=== PATIENT | male | born 1965 | race American Indian/Alaskan Native ===

== ENCOUNTER 2016-12-24 11:19 | Emergency (ER) | payer OTHER ==
[2016-12-24] MEDS ORDERED: DECADRON IM STA (14:33)
[2016-12-24] MEDS ORDERED: TORADOL IM ONE (14:33)
[2016-12-24 16:05] VITALS: BP 124/87
--- NOTE | 2016-12-25 08:23 | Emergency Department Report ---
Entered by MAC TALAVERA, acting as scribe for MARIANNA BALL PA. ED Lower Extremity HPI - General Chief Complaint: Extremity Injury, Lower Stated Complaint: GOUT Time Seen by Provider: 12/24/16 13:59 Source: patient Mode of arrival: Ambulatory Limitations: No Limitations - History of Present Illness Initial Comments: 51 y/o male with PMHx of DVT and HTN, presents to the ED c/o gout flare up that began 3 days ago. Associated symptoms include swelling, redness and pain to right ankle (x3 days) and right elbow (last night) and rash but he denies fever and chills. Pain is described as aching and 10/10 on a severity scale. Patient states his last gout flare was 1 month ago. No alleviating factors despite taking uloric or aggravating factors. NKDA. Patient has been eating seafood and red meat over the last couple days. He said he has obvious primary care next week regarding change in his maintenance gout medication because this is not working for him. MD Complaint: other (gout flare up right ankle and elbow) Onset/Timin -: days(s) Injury: Ankle: Right (swollen red from gout attack) Place: home Severity: severe Severity scale (0 -10): 10 Improves With: nothing Worsens With: nothing Context: other (gout flareup) Associated Symptoms: swelling, ambulatory. denies: snap/pop sensation, numbness , tingling, unable to bear weight, able to partially bear weight Treatments Prior to Arrival: other (uloric) - Related Data Previous Rx's Medication Instructions Recorded Last Taken Type Allopurinol [Zyloprim] 100 mg PO QDAY #30 tablet 02/26/13 10/02/13 09:00 Rx Colchicine/Probenecid 1 each PO DAILY #7 tablet 02/26/13 10/02/13 09:00 Rx [Probenecid-Colchicine Tab] Indomethacin [Indocin] 25 mg PO DAILY PRN #30 capsule 02/26/13 10/02/13 09:00 Rx HYDROcodone/APAP 5-325 [Anza 1 each PO Q6HR PRN #12 tablet 12/24/16 Unknown Rx 5-325 mg TAB] Ibuprofen [Motrin] 600 mg PO Q8H PRN #15 tablet 12/24/16 Unknown Rx predniSONE [Deltasone] 50 mg PO QDAY #5 tab 12/24/16 Unknown Rx Allergies Allergy/AdvReac Type Severity Reaction Status Date / Time No Known Allergies Allergy Verified 12/24/16 11:28 ED Review of Systems Comment: All other systems reviewed and negative Constitutional: denies: chills, fever Respiratory: no symptoms reported Cardiovascular: denies: chest pain, palpitations, edema, syncope Gastrointestinal: denies: abdominal pain, nausea, vomiting, diarrhea Genitourinary: denies: urgency, dysuria, frequency, hematuria Musculoskeletal: joint swelling, arthralgia (right ankle and right elbow). denies: back pain, myalgia Skin: rash, other (redness) Neurological: denies: headache, weakness, numbness, paresthesias, confusion, abnormal gait, vertigo ED Past Medical Hx - Past Medical History Previous Medical History?: Yes Hx Hypertension: Yes Hx Deep Vein Thrombosis: Yes Hx Pulmonary Embolism: Yes Additional medical history: Gout - Surgical History Past Surgical History?: No - Family History Family history: hypertension - Social History Smoking Status: Current Every Day Smoker Substance Use Type: None - Medications Home Medications: Home Medications Medication Instructions Recorded Confirmed Last Taken Type Allopurinol [Zyloprim] 100 mg PO QDAY #30 tablet 02/26/13 10/04/13 10/02/13 09: 00 Rx Colchicine/Probenecid 1 each PO DAILY #7 tablet 02/26/13 10/04/13 10/02/13 09: 00 Rx [Probenecid-Colchicine Tab] Indomethacin [Indocin] 25 mg PO DAILY PRN #30 capsule 02/26/13 10/04/13 09:00 Rx HYDROcodone/APAP 5-325 [Anza 1 each PO Q6HR PRN #12 tablet 12/24/16 Unknown Rx 5-325 mg TAB] Ibuprofen [Motrin] 600 mg PO Q8H PRN #15 tablet 12/24/16 Unknown Rx predniSONE [Deltasone] 50 mg PO QDAY #5 tab 12/24/16 Unknown Rx ED Physical Exam - General Limitations: No Limitations General appearance: alert, in no apparent distress - Head Head exam: Present: atraumatic, normocephalic, normal inspection - Eye Eye exam: Present: normal appearance, PERRL, EOMI Pupils: Present: normal accommodation - ENT ENT exam: Present: normal exam, normal orophraynx, mucous membranes moist, TM's normal bilaterally, normal external ear exam - Neck Neck exam: Present: normal inspection, full ROM. Absent: tenderness, lymphadenopathy - Respiratory Respiratory exam: Present: normal lung sounds bilaterally. Absent: respiratory distress, chest wall tenderness - Cardiovascular Cardiovascular Exam: Present: regular rate, normal rhythm, normal heart sounds - GI/Abdominal GI/Abdominal exam: Present: soft, normal bowel sounds. Absent: tenderness, guarding, rebound - Extremities Exam Extremities exam: Present: other (no ankle effusion, erythema, hot to touch, 2+ pulses) - Expanded Upper Extremity Exam Right General: Absent: normal inspection, laceration, abrasion, nail injury (#), foreign body, amputation Shoulder Exam: Present: normal inspection, full ROM, tenderness, swelling. Absent: laceration, ecchymosis, deformity, crepidus, dislocation, erythema, tenderness over AC joint Upper Arm exam: Present: normal inspection, full ROM. Absent: tenderness, swelling, abrasion, laceration, ecchymosis, deformity, crepidus, dislocation, erythema Elbow exam: Present: normal inspection, full ROM, tenderness, swelling (mild), erythema, other (hot to touch). Absent: abrasion, laceration, ecchymosis, deformity, crepidus, dislocation, effusion, pain w/ pronation/supination, tenderness over radial head Forearm Wrist exam: Present: normal inspection, full ROM. Absent: tenderness, swelling, abrasion, laceration, ecchymosis, deformity, crepidus, dislocation, erythema, tenderness over anatomical snuff box, pain with axial thumb loading Hand Wrist exam: Present: normal inspection, full ROM. Absent: tenderness, swelling, abrasion, laceration, ecchymosis, deformity, crepidus, dislocation, erythema, amputation, nail avulsion, subungual hematoma Neuro motor exam: Present: wrist extension intact, thumb opposition intact, thumb IP flexion intact, thumb adduction intact, fingers 2-5 abduction intact Vascular: Present: normal capillary refill, radial pulse, brachial pulse, ulnar pulse. Absent: vascular compromise, Pallo, pulse deficit radial art, pulse deficit ulnar art, pulse deficit brachial art - Expanded Lower Extremity Exam Right Hip exam: Present: normal inspection, full ROM, pelvic stability. Absent: tenderness, swelling, abrasion, laceration, ecchymosis, deformity, crepidus, dislocation, erythema, external rotation, internal rotation, shortening Upper Leg exam: Present: normal inspection, full ROM. Absent: tenderness, swelling, abrasion, laceration, ecchymosis, deformity, crepidus, dislocation, erythema Knee exam: Present: normal inspection, full ROM, full knee extension. Absent: tenderness, swelling, abrasion, laceration, ecchymosis, deformity, crepidus, dislocation, erythema, effusion, pain w/ pronation/supination Lower Leg exam: Present: normal inspection, full ROM. Absent: tenderness, swelling, abrasion, laceration, ecchymosis, deformity, crepidus, dislocation, erythema, palpable cord, Marian's sign Ankle exam: Present: full ROM, tenderness, swelling (mild), erythema. Absent: normal inspection, abrasion, laceration, ecchymosis, deformity, crepidus, dislocation Foot/Toe exam: Present: normal inspection, full ROM. Absent: tenderness, swelling, abrasion, laceration, ecchymosis, deformity, crepidus, dislocation, erythema, amputation, puncture wound, foreign body, calcaneal tenderness, tenderness at base of 5th metatarsal, nail avulsion, subungual hematoma Neuro vascular tendon exam: Present: no vascular compromise. Absent: pulse deficit, abnormal cap refill, motor deficit, sensory deficit, tendon deficit, extremity cold to touch, pallor, abnormal 2-point discrimination, decreased fine /light touch, foot drop, peroneal nerve deficit, significant pain with passive ROM of distal joint Gait: Positive: observed and limited by pain - Back Exam Back exam: Present: normal inspection, full ROM. Absent: tenderness, CVA tenderness (R), CVA tenderness (L), muscle spasm, paraspinal tenderness, vertebral tenderness, rash noted - Neurological Exam Neurological exam: Present: alert, oriented X3, normal gait, reflexes normal. Absent: motor sensory deficit - Psychiatric Psychiatric exam: Present: normal affect, normal mood - Skin Skin exam: Present: warm, dry, intact, normal color. Absent: rash ED Course Vital Signs 12/24/16 12/24/16 12/24/16 11:30 14:45 16:04 Temperature 98.3 F 97.7 F Pulse Rate 86 79 Respiratory 17 16 18 Rate Blood Pressure 123/84 Blood Pressure 124/87 [Left] O2 Sat by Pulse 99 98 Oximetry - Reevaluation(s) Reevaluation #1: 12/24/16 15:45 Patient given Decadron 10 mg IM and Toradol 60 mg IM and emergency room to manage ago pain. Reevaluation he said he was feeling much better and is ready to go home. ED Lower Extremity MDM - Medical Decision Making ED course: Patient with acute gouty arthritis flareup. He was treated with Decadron 10 mg IM and Toradol 60 mg IM which relieved this pain. I discussed the patient that he needs to follow a diet slowing. To reviewed discharge instruction paperwork for information on low purine diet. Discharge diagnosis and treatment plan discussed these in agreement. Pt to follow-up with his primary care next week to call Monday to schedule an appointment. Condition discharged home with prescription for prednisone, Motrin and Anza. ED Disposition Clinical Impression: Arthralgia of multiple joints Gout attack Qualifiers: Gout site: multiple sites Gout etiology: unspecified cause Qualified Code(s): M10.9 - Gout, unspecified Disposition: - TO HOME OR SELFCARE Is pt being admited?: No Does the pt Need Aspirin: No Condition: Stable Instructions: Acute Gouty Arthritis (ED), Arthralgia (ED) Additional Instructions: Please following instructions on low purine diet To not drive or operate heavy machinery while taking Anza as this medication will cause drowsiness Prescriptions: HYDROcodone/APAP 5-325 [Anza 5-325 mg TAB] 1 each PO Q6HR PRN #12 tablet PRN Reason: Pain Ibuprofen [Motrin] 600 mg PO Q8H PRN #15 tablet PRN Reason: Pain predniSONE [Deltasone] 50 mg PO QDAY #5 tab Referrals: PRIMARY CARE, [Primary Care Provider] - 12/26/16 Forms: Work/School Release Form(ED) This documentation as recorded by the ILAN ansari ELIZABETH,accurately reflects the service I personally performed and the decisions made by ,MARIANNA BALL PA.
== END 2016-12-24 16:04 | disposition home or self-care (01) ==
LOC: ED 11:19
DX: M25.571 Pain in right ankle and joints of right foot (principal); M25.521 Pain in right elbow; M10.9 Gout, unspecified; I10 Essential (primary) hypertension; F17.200 Nicotine dependence, unspecified, uncomplicated; Z86.718 Personal history of other venous thrombosis and embolism; Z86.711 Personal history of pulmonary embolism
CPT/HCPCS: 96372; 99282; J1100; J1885

== ENCOUNTER 2017-01-11 19:17 | Emergency (ER) | payer OTHER ==
[2017-01-12] MEDS ORDERED: NACL 0.9% IR ONE (00:44)
[2017-01-12] MEDS ORDERED: KEFLEX PO ONE (00:44)
[2017-01-12] MEDS ORDERED: MOTRIN PO ONE (00:44)
[2017-01-12] MEDS ORDERED: XYLOCAINE 1% MPF 5 mL INFILTRATI ONE (00:44)
--- NOTE | 2017-01-12 00:44 | Emergency Department Report ---
- General Chief Complaint: Wound/Laceration Stated Complaint: LACERATION TO R KNEE Time Seen by Provider: 01/12/17 00:30 Source: patient Mode of arrival: Ambulatory Limitations: No Limitations - History of Present Illness Initial Comments: Patient reports he was opening up a glass cabinet door at home and cut his right knee. This happened prior to him coming to the emergency room. He said he was bleeding a lot and he couldn't stop the bleeding. Patient plays pressure to site was dressed in and Band-Aids prior to coming to the emergency room. He reports right knee pain at 10 out of 10 and worse with moving. Denies any numbness or treatment to extremities. Denies that any part of the glass door broke off. He said his tetanus shot is up-to-date. Rest makes pain better and walk-in makes pain worse. -: During the night Extremity Location: Right: Knee (laceration,pain) 1 - cm laceration [address]: home Patient Tetanus UTD: Yes Context: accidental Associated Symptoms: pain. denies: loss of feeling/numbness, suspect foreign body present, unable to move injured part, weakness followed by dizziness, nausea/vomiting, fever Treatments Prior to Arrival: bandage - Related Data Previous Rx's Medication Instructions Recorded Last Taken Type Allopurinol [Zyloprim] 100 mg PO QDAY #30 tablet 02/26/13 10/02/13 09:00 Rx Colchicine/Probenecid 1 each PO DAILY #7 tablet 02/26/13 10/02/13 09:00 Rx [Probenecid-Colchicine Tab] Indomethacin [Indocin] 25 mg PO DAILY PRN #30 capsule 02/26/13 10/02/13 09:00 Rx HYDROcodone/APAP 5-325 [Braggs 1 each PO Q6HR PRN #12 tablet 12/24/16 Unknown Rx 5-325 mg TAB] Ibuprofen [Motrin] 600 mg PO Q8H PRN #15 tablet 12/24/16 Unknown Rx predniSONE [Deltasone] 50 mg PO QDAY #5 tab 12/24/16 Unknown Rx traMADol [Ultram] 50 mg PO Q6HR PRN #20 tablet 01/12/17 Unknown Rx Allergies Allergy/AdvReac Type Severity Reaction Status Date / Time No Known Allergies Allergy Verified 12/24/16 11:28 ED Review of Systems ROS: Stated complaint: LACERATION TO R KNEE Other details as noted in HPI Comment: All other systems reviewed and negative Constitutional: denies: chills, fever Respiratory: no symptoms reported Cardiovascular: denies: chest pain, palpitations, edema, syncope Gastrointestinal: denies: abdominal pain, nausea, vomiting, diarrhea Musculoskeletal: joint swelling, arthralgia. denies: back pain, myalgia Skin: other (aspiration right knee). denies: rash Neurological: denies: headache, weakness, numbness, paresthesias, confusion, abnormal gait, vertigo ED Past Medical Hx - Past Medical History Previous Medical History?: Yes Hx Hypertension: Yes Hx Deep Vein Thrombosis: Yes Hx Pulmonary Embolism: Yes Additional medical history: Gout - Surgical History Past Surgical History?: No - Family History Family history: hypertension - Social History Smoking Status: Current Every Day Smoker Substance Use Type: None Other Social History: and lives at - Medications Home Medications: Home Medications Medication Instructions Recorded Confirmed Last Taken Type Allopurinol [Zyloprim] 100 mg PO QDAY #30 tablet 02/26/13 10/04/13 10/02/13 09: 00 Rx Colchicine/Probenecid 1 each PO DAILY #7 tablet 02/26/13 10/04/13 10/02/13 09: 00 Rx [Probenecid-Colchicine Tab] Indomethacin [Indocin] 25 mg PO DAILY PRN #30 capsule 02/26/13 10/04/13 09:00 Rx HYDROcodone/APAP 5-325 [Braggs 1 each PO Q6HR PRN #12 tablet 12/24/16 Unknown Rx 5-325 mg TAB] Ibuprofen [Motrin] 600 mg PO Q8H PRN #15 tablet 12/24/16 Unknown Rx predniSONE [Deltasone] 50 mg PO QDAY #5 tab 12/24/16 Unknown Rx traMADol [Ultram] 50 mg PO Q6HR PRN #20 tablet 01/12/17 Unknown Rx ED Physical Exam - General Limitations: No Limitations General appearance: alert, in no apparent distress - Head Head exam: Present: atraumatic, normocephalic, normal inspection - Eye Eye exam: Present: normal appearance, PERRL, EOMI. Absent: periorbital swelling , periorbital tenderness Pupils: Present: normal accommodation - ENT ENT exam: Present: normal exam, normal orophraynx, mucous membranes moist - Neck Neck exam: Present: normal inspection, full ROM. Absent: tenderness, meningismus, lymphadenopathy - Respiratory Respiratory exam: Present: normal lung sounds bilaterally. Absent: respiratory distress, chest wall tenderness - Cardiovascular Cardiovascular Exam: Present: regular rate, normal rhythm, normal heart sounds - Extremities Exam Extremities exam: Present: full ROM, tenderness (right knee at laceration site) , normal capillary refill, joint swelling (mild swelling to right knee). Absent : normal inspection, pedal edema, calf tenderness - Expanded Lower Extremity Exam Left Hip exam: Present: normal inspection, full ROM, pelvic stability. Absent: tenderness, swelling, abrasion, laceration, ecchymosis, deformity, crepidus, dislocation, erythema, external rotation, internal rotation, shortening Upper Leg exam: Present: normal inspection, full ROM. Absent: tenderness, swelling, abrasion, laceration, ecchymosis, deformity, crepidus, dislocation, erythema Knee exam: Present: full ROM, tenderness (end of the palpate right knee around laceration), swelling (swelling around right knee), laceration (recent and medially near subcutaneous in depth), pain w/ pronation/supination, full knee extension. Absent: normal inspection, abrasion, ecchymosis, deformity, crepidus , dislocation, erythema, effusion, pain/laxity with valgus, pain/laxity with varus Lower Leg exam: Present: normal inspection, full ROM. Absent: tenderness, swelling, abrasion, laceration, ecchymosis, deformity, crepidus, dislocation, erythema, palpable cord, Marian's sign Ankle exam: Present: normal inspection, full ROM. Absent: tenderness, swelling , abrasion, laceration, ecchymosis, deformity, crepidus, dislocation, erythema Foot/Toe exam: Present: normal inspection, full ROM. Absent: tenderness, swelling, abrasion, laceration, ecchymosis, deformity, crepidus, dislocation, erythema, amputation, puncture wound, foreign body, calcaneal tenderness, tenderness at base of 5th metatarsal, nail avulsion, subungual hematoma Neuro vascular tendon exam: Present: no vascular compromise. Absent: pulse deficit, abnormal cap refill, motor deficit, sensory deficit, tendon deficit, extremity cold to touch, pallor, abnormal 2-point discrimination, decreased fine /light touch, foot drop, peroneal nerve deficit, significant pain with passive ROM of distal joint Gait: Positive: observed and limited by pain - Back Exam Back exam: Present: normal inspection, full ROM. Absent: tenderness - Neurological Exam Neurological exam: Present: alert, oriented X3, normal gait, reflexes normal. Absent: motor sensory deficit - Psychiatric Psychiatric exam: Present: normal affect, normal mood - Skin Skin exam: Present: warm, dry, normal color, other (laceration) - Expanded Skin Exam Expanded Type of lesion: Present: laceration Distribution of rash: RLE, other (right knee) Description of rash: Present: size (3 cm), tenderness, swelling. Absent: erythematous, macular, papular, discharge, fluctuant, indurated ED Course Vital Signs 01/11/17 20:08 Temperature 98.3 F Pulse Rate 83 Respiratory 16 Rate Blood Pressure 158/100 O2 Sat by Pulse 97 Oximetry - Reevaluation(s) Reevaluation #1: 01/12/17 02:18 Received Motrin and Keflex in the emergency room to cover pain and empirically for infection - I & D Right Anterior Medial Knee Progress: No procedure for incision and drainage done this is an arrow - Laceration /Wound Repair Right Anterior Medial Knee Wound Location: lower extremity (right anterior knee) Wound Length (cm): 3 Wound's Depth, Shape: into muscle, linear Wound Explored: clean Irrigated w/ Saline (ccs): 400 Betadine Prep?: Yes Anesthesia: 1% Lidocaine Volume Anesthetic (ccs): 5 Wound Debrided: extensive Wound Repaired With: sutures Suture Size/Type: 3:0 (Ethilon) Number of Sutures: 15 Layer Closure?: Yes Deep Layer Suture Size/Type: 5:0 (Vicryl) Number Deep Layer Sutures: 6 Sterile Dressing Applied?: Yes Progress: patient with laceration repair to right knee. Tetanus vaccine is up-to-date per patient. She tolerated procedure well and area dressed with sterile bulky dressing. ED Medical Decision Making - Medical Decision Making MDM: Assessment/plan ED course:PT here after injuring his right knee on glass door tonight. He sustained a 3 cm laceration which had to be repaired. Duration repaired under sterile procedure see procedure note for details. reports that his tetanus shot is up-to-date less than 5 years. Motrin and Keflex given in emergency room to treat pain and an empirically For infection . She has a history of high blood pressure and is not taking any medication his blood pressure today was 150 /100 and he said because he is in pain. He said he occasionally have high blood pressure but not on a regular basis he does have a primary care physician was Dr. Shira Rhoades. I told himto keep a log of his blood pressure and to schedule an appointment with his primary care doctor and take log with him for evaluation and treatment of elevated blood pressure. She has a history of DVT, gout and pulmonary embolism based on his history at this hospital. Diagnostic/labs: no need For any labs or diagnostic studies. Diagnosis: Laceration without complication to right knee, right knee arthralgia, right knee injury and elevated blood pressure with previous diagnosis of hypertension on no medication. Procedure: Laceration repair under sterile procedure to right knee. He tells in procedure Notes . Medication: She given Motrin 800 mg for pain and Keflex 500 mg empirically for infection. He was prescription for Ultram and Keflex . follow up with his primary care. I also told him to return to emergency room in 7-10 days to have sutures removed. Patient discharged home in stable condition Critical care attestation.: If time is entered above; I have spent that time in minutes in the direct care of this critically ill patient, excluding procedure time. ED Disposition Clinical Impression: Arthralgia of right knee Laceration of right knee without foreign body Qualifiers: Encounter type: initial encounter Qualified Code(s): S81.011A - Laceration without foreign body, right knee, initial encounter Right knee injury Qualifiers: Encounter type: initial encounter Qualified Code(s): S89.91XA - Unspecified injury of right lower leg, initial encounter Disposition: TO HOME OR SELFCARE Is pt being admited?: No Does the pt Need Aspirin: No Condition: Stable Instructions: Arthralgia (ED), Suture Care (ED), Laceration (ED) Additional Instructions: return to ER in 7-10 days for suture removal Take medication as prescribed Keep affected area clean and dry follow up with PCP regrding elevated BP. Keep a log while waiting for appointmentt Prescriptions: traMADol [Ultram] 50 mg PO Q6HR PRN #20 tablet PRN Reason: Pain Referrals: SHIRA RHOADES MD [Primary Care Provider] - 01/16/17 Return to, ER [Other] - 7-10 days Forms: Work/School Release Form(ED)
[2017-01-12 02:48] VITALS: BP 160/111
== END 2017-01-12 02:46 | disposition home or self-care (01) ==
LOC: ED 19:17
DX: S81.011A Laceration without foreign body, right knee, initial encounter (principal); I10 Essential (primary) hypertension; I82.409 Acute embolism and thrombosis of unspecified deep veins of unspecified lower extremity; M10.9 Gout, unspecified; I26.99 Other pulmonary embolism without acute cor pulmonale; F17.200 Nicotine dependence, unspecified, uncomplicated; W26.8XXA Contact with other sharp object(s), not elsewhere classified, initial encounter; Y93.89 Activity, other specified; Y99.8 Other external cause status; Y92.89 Other specified places as the place of occurrence of the external cause

== ENCOUNTER 2017-07-22 14:29 | Emergency (ER) | payer OTHER ==
[2017-07-22 14:35] VITALS: BP 114/95
--- NOTE | 2017-07-22 17:46 | Emergency Department Report ---
Chief Complaint: Skin Rash Stated Complaint: FLU SYMPTOMS/RASH Time Seen by Provider: 07/22/17 17:45 - HPI History of Present Illness: P is a 51 yo male who presents for gout pain of his left elbow and left wrist. Pt states he also has a rash of his chest x 3days. pt states he takes Allopurinol, Colcrys and Indocin.Pt states the rash is itchy and started on his abdomen . Pt states he had this rash before and states that the rash responded to Prednisone . Pt stated that the medications don't help . - ROS Review of Systems: ROS: all systems reviewed neg except as noted per HPI PE: awake, alert and in no distress HEENT: eomi, perrl; mmm Neck: supple Lungs: clear bilat Heart: RRR; no m/g/r Abd: soft, +BS, nd, nt; no peritoneal signs Ext: ; dp pulses 2+; Left elbow and left wrist warmth, edema with tophi Back: tenderness left lower lumbar paraspinal muscles ext; pulses 2+; Neuro: awake, alert in no acute distress skin: dermatitis over trunk legs and back; pityriasis -like rash strength: bilat ue and lower extremities gait: normal - Exam Vital Signs: Vital Signs 07/22/17 14:32 Temperature 98 F Pulse Rate 97 H Respiratory 18 Rate Blood Pressure 114/95 O2 Sat by Pulse 99 Oximetry MSE screening note: Focused history and physical exam performed. Due to findings the following was ordered: ED Disposition for MSE Condition: Stable Referrals: SABI CEDILLO MD [Primary Care Provider] - 3-5 Days
== END 2017-07-22 20:32 | disposition home or self-care (01) ==
LOC: ED 14:29
DX: M25.522 Pain in left elbow (principal); M25.532 Pain in left wrist
CPT/HCPCS: 99282

== ENCOUNTER 2017-08-11 21:10 | Emergency (ER) | payer OTHER ==
[2017-08-11 21:44] VITALS: BP 142/81
[2017-08-11] MEDS ORDERED: DELTASONE PO ONE (23:00)
[2017-08-11] MEDS ORDERED: ULTRAM PO ONE (23:00)
--- NOTE | 2017-08-11 23:07 | Emergency Department Report ---
ED Upper Extremity Inj HPI - General Chief Complaint: Extremity Injury, Upper Stated Complaint: RIGHT ARM/SHOULDER PAIN Time Seen by Provider: 08/11/17 22:56 Source: patient, family Mode of arrival: Ambulatory Limitations: No Limitations - History of Present Illness Initial Comments: Patient 51-year-old -Thai male with a history of gout on allopurinol patient presents for right hand right elbow and right shoulder pain symptoms 3- 4 days pain worse right hand with swelling erythema present there is no weakness patient states is his usual gout exacerbation location duration and pain intensity MD Complaint: Injury to:: right, shoulder, elbow, hand Onset/Timin -: days(s) Other Extremity Injury: Fingers: Right, Hand: Right, Wrist: Right, Elbow: Right , Shoulder: Right Other Injuries: none Place: work Severity scale (0 -10): 4 Worsens With: movement of extremity, other (palpation ) Associated Symptoms: denies: weakness, numbness - Related Data Previous Rx's Medication Instructions Recorded Last Taken Type Allopurinol [Zyloprim] 100 mg PO QDAY #30 tablet 02/26/13 10/02/13 09:00 Rx Indomethacin [Indocin] 25 mg PO DAILY PRN #30 capsule 02/26/13 10/02/13 09:00 Rx Probenecid/Colchicine 1 each PO DAILY #7 tablet 02/26/13 10/02/13 09:00 Rx [Probenecid-Colchicine Tab] HYDROcodone/APAP 5-325 [[place] 1 each PO Q6HR PRN #12 tablet 12/24/16 Unknown Rx 5-325 mg TAB] Ibuprofen [Motrin] 600 mg PO Q8H PRN #15 tablet 12/24/16 Unknown Rx predniSONE [Deltasone] 50 mg PO QDAY #5 tab 12/24/16 Unknown Rx traMADol [Ultram] 50 mg PO Q6HR PRN #20 tablet 01/12/17 Unknown Rx predniSONE [Deltasone] 60 mg PO QDAY 5 Days #15 tablet 07/22/17 Unknown Rx traMADol [Ultram] 50 mg PO Q6HR PRN #20 tablet 07/22/17 Unknown Rx Indomethacin 50 mg PO Q8H #21 capsule 08/11/17 Unknown Rx predniSONE [Deltasone] 40 mg PO DAILY #10 tablet 08/11/17 Unknown Rx Allergies Allergy/AdvReac Type Severity Reaction Status Date / Time No Known Allergies Allergy Verified 12/24/16 11:28 ED Review of Systems ROS: Stated complaint: RIGHT ARM/SHOULDER PAIN Other details as noted in HPI Constitutional: denies: chills, fever Eyes: denies: eye pain, eye discharge, vision change ENT: denies: ear pain, throat pain Respiratory: denies: cough, shortness of breath, wheezing Cardiovascular: denies: chest pain, palpitations Endocrine: no symptoms reported Gastrointestinal: denies: abdominal pain, nausea, diarrhea Genitourinary: denies: urgency, dysuria Musculoskeletal: joint swelling, arthralgia, myalgia Skin: denies: rash, lesions Neurological: denies: headache, weakness, paresthesias Psychiatric: denies: anxiety, depression Hematological/Lymphatic: denies: easy bleeding, easy bruising ED Past Medical Hx - Past Medical History Previous Medical History?: Yes Hx Hypertension: Yes Hx Deep Vein Thrombosis: Yes Hx Pulmonary Embolism: Yes Additional medical history: Gout - Surgical History Past Surgical History?: No - Social History Smoking Status: Current Every Day Smoker Substance Use Type: None - Medications Home Medications: Home Medications Medication Instructions Recorded Confirmed Last Taken Type Allopurinol [Zyloprim] 100 mg PO QDAY #30 tablet 02/26/13 10/04/13 10/02/13 09: 00 Rx Indomethacin [Indocin] 25 mg PO DAILY PRN #30 capsule 02/26/13 10/04/13 09:00 Rx Probenecid/Colchicine 1 each PO DAILY #7 tablet 02/26/13 10/04/13 10/02/13 09: 00 Rx [Probenecid-Colchicine Tab] HYDROcodone/APAP 5-325 [[place] 1 each PO Q6HR PRN #12 tablet 12/24/16 Unknown Rx 5-325 mg TAB] Ibuprofen [Motrin] 600 mg PO Q8H PRN #15 tablet 12/24/16 Unknown Rx predniSONE [Deltasone] 50 mg PO QDAY #5 tab 12/24/16 Unknown Rx traMADol [Ultram] 50 mg PO Q6HR PRN #20 tablet 01/12/17 Unknown Rx predniSONE [Deltasone] 60 mg PO QDAY 5 Days #15 tablet 07/22/17 Unknown Rx traMADol [Ultram] 50 mg PO Q6HR PRN #20 tablet 07/22/17 Unknown Rx Indomethacin 50 mg PO Q8H #21 capsule 08/11/17 Unknown Rx predniSONE [Deltasone] 40 mg PO DAILY #10 tablet 08/11/17 Unknown Rx ED Physical Exam - General Limitations: No Limitations General appearance: alert, in no apparent distress - Head Head exam: Present: atraumatic, normocephalic - Eye Eye exam: Present: normal appearance - ENT ENT exam: Present: mucous membranes moist - Neck Neck exam: Present: normal inspection - Respiratory Respiratory exam: Present: normal lung sounds bilaterally. Absent: respiratory distress - Cardiovascular Cardiovascular Exam: Present: regular rate, normal rhythm. Absent: systolic murmur, diastolic murmur, rubs, gallop - GI/Abdominal GI/Abdominal exam: Present: soft, normal bowel sounds - Rectal Rectal exam: Present: deferred - Extremities Exam Extremities exam: Present: full ROM, tenderness, joint swelling. Absent: normal capillary refill, pedal edema, calf tenderness - Expanded Upper Extremity Exam Right Shoulder Exam: Present: normal inspection, full ROM, tenderness. Absent: swelling, abrasion, laceration, ecchymosis, deformity, crepidus, dislocation, erythema, tenderness over AC joint Upper Arm exam: Present: normal inspection, full ROM. Absent: tenderness, swelling, abrasion, laceration, ecchymosis, deformity, crepidus, dislocation, erythema Elbow exam: Present: normal inspection, full ROM, tenderness. Absent: swelling , abrasion, laceration, ecchymosis, deformity, crepidus, dislocation, erythema, effusion, pain w/ pronation/supination, tenderness over radial head Forearm Wrist exam: Present: normal inspection, full ROM. Absent: tenderness, swelling, abrasion, laceration, ecchymosis, deformity, crepidus, dislocation, erythema, tenderness over anatomical snuff box, pain with axial thumb loading Hand Wrist exam: Present: normal inspection, full ROM, tenderness, swelling. Absent: abrasion, laceration, ecchymosis, deformity, crepidus, dislocation, erythema, amputation, nail avulsion, subungual hematoma Neuro motor exam: Present: wrist extension intact, thumb opposition intact, thumb IP flexion intact, thumb adduction intact, fingers 2-5 abduction intact Neurosensory exam: Present: 2-point discrimination, radial nerve intact, ulnar nerve intact, median nerve intact Vascular: Present: normal capillary refill, radial pulse, brachial pulse, ulnar pulse. Absent: vascular compromise, Pallo, pulse deficit radial art, pulse deficit ulnar art, pulse deficit brachial art - Back Exam Back exam: Present: normal inspection - Neurological Exam Neurological exam: Present: alert, oriented X3 - Psychiatric Psychiatric exam: Present: normal affect, normal mood - Skin Skin exam: Present: warm, dry, intact, normal color. Absent: rash ED Course Vital Signs 08/11/17 21:36 Temperature 99.7 F H Pulse Rate 98 H Respiratory 18 Rate Blood Pressure 142/81 O2 Sat by Pulse 97 Oximetry ED Medical Decision Making - Radiology Data Radiology results: report reviewed, image reviewed no fracture no dislocations noted to xrays of should,elbow or wrist/hand - Medical Decision Making pr presents for acute on chronic gout exacerbation on allopurinol 100 mg po daily , will hold until completion of indomethacin and prednisone, will follow up with pcp in 2-3 days, noted xrays of hand elbow shoulder ordered via protocol in triage no fracture pain is improved with prednisone and ultram given in ed there is good rom rad pulse + 2 bilat, 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 Critical care attestation.: If time is entered above; I have spent that time in minutes in the direct care of this critically ill patient, excluding procedure time. ED Disposition Clinical Impression: Gout Qualifiers: Gout site: hand Gout etiology: unspecified cause Chronicity: acute Laterality: right Qualified Code(s): M10.9 - Gout, unspecified Disposition: DC-01 TO HOME OR SELFCARE Is pt being admited?: No Does the pt Need Aspirin: No Condition: Good Instructions: Acute Gouty Arthritis (ED) Prescriptions: Indomethacin 50 mg PO Q8H #21 capsule predniSONE [Deltasone] 40 mg PO DAILY #10 tablet Referrals: PRIMARY CARE, [Primary Care Provider] - 3-5 Days Forms: Work/School Release Form(ED) Time of Disposition: 23:17
--- NOTE | 2017-08-11 23:16 | XRay Report ---
FINAL REPORT PROCEDURE: Right hand. TECHNIQUE: Two views. HISTORY: Hand pain and swelling. COMPARISON: No prior studies are available for comparison. FINDINGS: The bones appear intact without fracture or dislocation. The joint spaces appear satisfactory. The soft tissues are unremarkable. IMPRESSION: No significant abnormality.
--- NOTE | 2017-08-11 23:22 | XRay Report ---
FINAL REPORT PROCEDURE: Right shoulder. TECHNIQUE: Three views. HISTORY: Shoulder pain and swelling. COMPARISON: No prior studies are available for comparison. FINDINGS: The bones appear intact without fracture or dislocation. The joint spaces appear satisfactory. The soft tissues are unremarkable. IMPRESSION: No significant abnormality.
--- NOTE | 2017-08-11 23:23 | XRay Report ---
FINAL REPORT PROCEDURE: Right elbow. TECHNIQUE: Three views. HISTORY: Elbow pain and swelling. COMPARISON: No prior studies are available for comparison. FINDINGS: I do not have a true lateral view for evaluation. I have an AP and 2 oblique views. The bones appear intact without fracture or dislocation. The joint spaces appear satisfactory. The soft tissues are unremarkable. IMPRESSION: No definite abnormality.
== END 2017-08-11 23:27 | disposition home or self-care (01) ==
LOC: ED 21:10
DX: M10.011 Idiopathic gout, right shoulder (principal); I10 Essential (primary) hypertension; Z86.718 Personal history of other venous thrombosis and embolism; F17.200 Nicotine dependence, unspecified, uncomplicated; Z86.711 Personal history of pulmonary embolism
CPT/HCPCS: 73030; 73070; 73120; 99283; J7512

== ENCOUNTER 2017-09-11 05:22 | Emergency (ER) | payer OTHER ==
[2017-09-11] MEDS ORDERED: NORCO 5/325 ONE (06:41)
[2017-09-11] MEDS ORDERED: NORCO 5/325 PO ONE ×2 (06:43→08:58)
--- NOTE | 2017-09-11 09:00 | Emergency Department Report ---
ED Extremity Problem HPI - General Chief complaint: Extremity Injury, Lower Stated complaint: GOUT Time Seen by Provider: 09/11/17 08:37 Source: patient Mode of arrival: Ambulatory Limitations: No Limitations - History of Present Illness Initial comments: 51-year-old male past medical history gout, DVT, hypertension, PE presents with complaint of left ankle pain since Monday. Patient states that he has left ankle discomfort. Denies any direct trauma. Denies any calf tenderness or leg swelling this leg. States that his symptoms are most consistent with prior episodes of gout. Patient states he ran out of his allopurinol. Denies any fevers or chills. Patient is ambulatory without assistance. States his left ankle is aching him. MD Complaint: extremity pain, extremity swelling Onset/Timin -: days(s) Location: left -: Yes arthralgia Severity scale (0 -10): 3 Consistency: constant Improves with: nothing Worsens with: nothing, weight bearing, walking, palpation Associated Symptoms: denies other symptoms - Related Data Previous Rx's Medication Instructions Recorded Last Taken Type Allopurinol [Zyloprim] 100 mg PO QDAY #30 tablet 02/26/13 10/02/13 09:00 Rx Indomethacin [Indocin] 25 mg PO DAILY PRN #30 capsule 02/26/13 10/02/13 09:00 Rx Probenecid/Colchicine 1 each PO DAILY #7 tablet 02/26/13 10/02/13 09:00 Rx [Probenecid-Colchicine Tab] HYDROcodone/APAP 5-325 [[place] 1 each PO Q6HR PRN #12 tablet 12/24/16 Unknown Rx 5-325 mg TAB] Ibuprofen [Motrin] 600 mg PO Q8H PRN #15 tablet 12/24/16 Unknown Rx predniSONE [Deltasone] 50 mg PO QDAY #5 tab 12/24/16 Unknown Rx traMADol [Ultram] 50 mg PO Q6HR PRN #20 tablet 01/12/17 Unknown Rx predniSONE [Deltasone] 60 mg PO QDAY 5 Days #15 tablet 07/22/17 Unknown Rx traMADol [Ultram] 50 mg PO Q6HR PRN #20 tablet 07/22/17 Unknown Rx Indomethacin 50 mg PO Q8H #21 capsule 08/11/17 Unknown Rx predniSONE [Deltasone] 40 mg PO DAILY #10 tablet 08/11/17 Unknown Rx Allopurinol 100 mg PO QDAY #30 tablet 09/11/17 Unknown Rx Cephalexin [Keflex] 500 mg PO Q12HR #10 cap 09/11/17 Unknown Rx Colchicine [Colcrys] 0.6 mg PO DAILY #4 tablet 09/11/17 Unknown Rx HYDROcodone/APAP 5-325 [[place] 1 each PO Q6HR PRN #15 tablet 09/11/17 Unknown Rx 5/325] Allergies Allergy/AdvReac Type Severity Reaction Status Date / Time No Known Allergies Allergy Verified 12/24/16 11:28 ED Review of Systems ROS: Stated complaint: GOUT Other details as noted in HPI Constitutional: denies: chills, fever Eyes: denies: eye pain, eye discharge, vision change ENT: denies: ear pain, throat pain Respiratory: denies: cough, shortness of breath, wheezing Cardiovascular: denies: chest pain, palpitations Endocrine: no symptoms reported Gastrointestinal: denies: abdominal pain, nausea, diarrhea Genitourinary: denies: urgency, dysuria Musculoskeletal: as per HPI, arthralgia (left ankle). denies: back pain, joint swelling Skin: denies: rash, lesions Neurological: denies: headache, weakness, paresthesias Psychiatric: denies: anxiety, depression Hematological/Lymphatic: denies: easy bleeding, easy bruising ED Past Medical Hx - Past Medical History Previous Medical History?: Yes Hx Hypertension: Yes Hx Deep Vein Thrombosis: Yes Hx Pulmonary Embolism: Yes Additional medical history: Gout - Surgical History Past Surgical History?: No - Social History Smoking Status: Never Smoker Substance Use Type: None - Medications Home Medications: Home Medications Medication Instructions Recorded Confirmed Last Taken Type Allopurinol [Zyloprim] 100 mg PO QDAY #30 tablet 02/26/13 10/04/13 10/02/13 09: 00 Rx Indomethacin [Indocin] 25 mg PO DAILY PRN #30 capsule 02/26/13 10/04/13 09:00 Rx Probenecid/Colchicine 1 each PO DAILY #7 tablet 02/26/13 10/04/13 10/02/13 09: 00 Rx [Probenecid-Colchicine Tab] HYDROcodone/APAP 5-325 [[place] 1 each PO Q6HR PRN #12 tablet 12/24/16 Unknown Rx 5-325 mg TAB] Ibuprofen [Motrin] 600 mg PO Q8H PRN #15 tablet 12/24/16 Unknown Rx predniSONE [Deltasone] 50 mg PO QDAY #5 tab 12/24/16 Unknown Rx traMADol [Ultram] 50 mg PO Q6HR PRN #20 tablet 01/12/17 Unknown Rx predniSONE [Deltasone] 60 mg PO QDAY 5 Days #15 tablet 07/22/17 Unknown Rx traMADol [Ultram] 50 mg PO Q6HR PRN #20 tablet 07/22/17 Unknown Rx Indomethacin 50 mg PO Q8H #21 capsule 08/11/17 Unknown Rx predniSONE [Deltasone] 40 mg PO DAILY #10 tablet 08/11/17 Unknown Rx Allopurinol 100 mg PO QDAY #30 tablet 09/11/17 Unknown Rx Cephalexin [Keflex] 500 mg PO Q12HR #10 cap 09/11/17 Unknown Rx Colchicine [Colcrys] 0.6 mg PO DAILY #4 tablet 09/11/17 Unknown Rx HYDROcodone/APAP 5-325 [[place] 1 each PO Q6HR PRN #15 tablet 09/11/17 Unknown Rx 5/325] ED Physical Exam - General Limitations: No Limitations General appearance: alert, in no apparent distress - Head Head exam: Present: atraumatic, normocephalic - Eye Eye exam: Present: normal appearance, PERRL, EOMI - ENT ENT exam: Present: mucous membranes moist - Neck Neck exam: Present: normal inspection - Respiratory Respiratory exam: Present: normal lung sounds bilaterally. Absent: respiratory distress - Cardiovascular Cardiovascular Exam: Present: regular rate, normal rhythm. Absent: systolic murmur, diastolic murmur, rubs, gallop - GI/Abdominal GI/Abdominal exam: Present: soft, normal bowel sounds - Rectal Rectal exam: Present: deferred - Extremities Exam Extremities exam: Present: normal inspection - Expanded Lower Extremity Exam Left Hip exam: Present: normal inspection, full ROM Upper Leg exam: Present: normal inspection, full ROM Knee exam: Present: normal inspection, full ROM Lower Leg exam: Present: normal inspection, full ROM Ankle exam: Present: full ROM (ankle dorsiflexion and plantarflexion are intact) , tenderness (there is some anterior dorsal ankle tenderness on palpation. Slight erythema visible on skin), erythema (slight erythema on the side of the lateral malleolus) Foot/Toe exam: Present: normal inspection, full ROM Neuro vascular tendon exam: Present: no vascular compromise (distal dorsalis pedis and posterior tibial pulses are strong to palpation) Gait: Positive: antalgic 1 - Slight swelling and erythema here - Back Exam Back exam: Present: normal inspection - Neurological Exam Neurological exam: Present: alert, oriented X3, CN II-XII intact, normal gait - Expanded Neurological Exam Expanded Patient oriented to: Present: person, place, time Cranial nerves: EOM's Intact: Normal Sensory exam: Upper Extremity Light Touch: Normal, Lower Extremity Light Touch: Normal Best Eye Response ([place]): (4) open spontaneously Best Motor Response ([place]): (6) obeys commands Best Verbal Response ([place]): (5) oriented Henry Total: 15 - Psychiatric Psychiatric exam: Present: normal affect, normal mood - Skin Skin exam: Present: warm, dry, intact, normal color. Absent: rash ED Course Vital Signs 09/11/17 09/11/17 05:25 09:45 Temperature 98.3 F Pulse Rate 125 H Respiratory 17 18 Rate Blood Pressure 138/88 O2 Sat by Pulse 97 Oximetry ED Medical Decision Making - Lab Data Result diagrams: 09/11/17 09:47 09/11/17 09:47 - Medical Decision Making A/P: Left ankle gout flare versus early cellulitis 1-case discussed with Dr. Treviño 2-slight elevation and uric acid level. Patient states that his symptoms are consistent with his prior episodes of gout. Patient is ambulatory. Good neurovascular exam of left ankle. Small area of erythema overlying skin on left lateral malleolus. Borders marked with a skin pen. 3-will give patient short course of [place] and allopurinol. Short course of colchicine for acute gout flare 4- follow-up with primary care and orthopedics. 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 5- vital signs stabilized before discharge. Patient is not tachycardic. States that when his vitals were taken earlier he was experiencing pain in his left ankle. Weightbearing as tolerated. Patient provided with crutches to relieve pain on ankle. I specifically advised patient that if he notices he develops any fevers or chills or erythema that wraps around ankle to return to the ED as soon as possible. Critical care attestation.: If time is entered above; I have spent that time in minutes in the direct care of this critically ill patient, excluding procedure time. ED Disposition Clinical Impression: Left ankle pain Qualifiers: Chronicity: acute Qualified Code(s): M25.572 - Pain in left ankle and joints of left foot Gout Qualifiers: Gout site: ankle Encounter type: initial encounter Chronicity: acute Laterality : left Disposition: - TO HOME OR SELFCARE Is pt being admited?: No Does the pt Need Aspirin: No Condition: Stable Instructions: Arthralgia (ED), Acute Gouty Arthritis (ED), Cellulitis (ED), RICE Therapy (ED) Prescriptions: Allopurinol 100 mg PO QDAY #30 tablet Cephalexin [Keflex] 500 mg PO Q12HR #10 cap Colchicine [Colcrys] 0.6 mg PO DAILY #4 tablet HYDROcodone/APAP 5-325 [[place] 5/325] 1 each PO Q6HR PRN #15 tablet PRN Reason: Pain Referrals: [facility] [Outside] - 3-5 Days Forms: Work/School Release Form(ED) Time of Disposition: 11:50
[2017-09-11] MEDS ORDERED: NACL 0.9% 1000 ML 1,000 ML IV ONE (09:06)
[2017-09-11] MEDS ORDERED: NACL 0.9% 500 ML 500 ML IV ONE (09:06)
--- NOTE | 2017-09-11 09:43 | XRay Report ---
LEFT ANKLE, 3 views: History: Gallop flair, moderate left ankle pain. There is moderate diffuse soft tissue swelling or pedal edema. Bone mineralization is within normal limits. There are moderate osteoarthritic changes at the ankle joint. There is also a suggestion of an osteochondral defect on the medial talar dome on the oblique image. No obvious bony erosions within the an overhanging edge to suggest gout. IMPRESSION: Soft tissue swelling. Osteoarthritis. Possible osteochondral defect involving the medial talar dome as described. No definite findings of gout on x-ray.
[2017-09-11 10:11] LABS: Basophils # (Auto) 0.1 K/mm3 (0.0-0.1); Basophils % (Auto) 0.6 % (0.0-1.8); Eosinophils # (Auto) 0.1 K/mm3 (0.0-0.4); Eosinophils % (Auto) 0.4 % (0.0-4.3); Hematocrit 45.8 % (35.5-45.6); Hemoglobin 15.3 gm/dl (11.8-15.2); Lymphocytes # (Auto) 2.1 K/mm3 (1.2-5.4); Lymphocytes % (Auto) 14.7 % (13.4-35.0); Mean Corpuscular HGB Conc 34 % (32-34); Mean Corpuscular Hemoglobin 29 pg (28-32); Mean Corpuscular Volume 88 fl (84-94); Monocytes # (Auto) 1.1 K/mm3 (0.0-0.8); Monocytes % (Auto) 7.4 % (0.0-7.3); Platelet Count 281 K/mm3 (140-440); Red Blood Count 5.23 M/mm3 (3.65-5.03); Red Cell Distribution Width 14.6 % (13.2-15.2)
[2017-09-11 10:27] LABS: BUN/Creatinine Ratio 8; Blood Urea Nitrogen 6 mg/dL (9-20); Calcium 9.7 mg/dL (8.4-10.2); Hemolysis Index 191; Uric Acid 8.9 mg/dL (3.5-7.6)
[2017-09-11] MEDS ORDERED: DECADRON IV ONE (11:45)
[2017-09-11 12:11] VITALS: BP 119/80
== END 2017-09-11 12:27 | disposition home or self-care (01) ==
LOC: ED 05:22
DX: M10.072 Idiopathic gout, left ankle and foot (principal); I10 Essential (primary) hypertension; Z86.718 Personal history of other venous thrombosis and embolism; Z86.711 Personal history of pulmonary embolism
CPT/HCPCS: 36415; 73610; 80048; 84550; 85025; 96361; 96374; 99284; J1100; J7030

== ENCOUNTER 2019-12-05 11:15 | Outpatient (CLI) | payer OTHER ==
[2019-12-05 12:59] LABS: Alanine Aminotransferase 9 units/L (7-56); Albumin 3.8 g/dL (3.9-5); BUN/Creatinine Ratio 6; Blood Urea Nitrogen 5 mg/dL (9-20); Calcium 9.3 mg/dL (8.4-10.2); Chol/HDL Ratio 3.37 %; HDL Cholesterol 53 mg/dL (40-59); Hemolysis Index 11; LDL Cholesterol,Direct 115 mg/dL (50-130)
[2019-12-05 13:20] LABS: ABG HCO3 25.7 mmol/L (20.0-26.0); ABG Methemoglobin 0.5 % (0.0-1.5); ABG Oxygen Saturation 96.6 % (95.0-99.0); ABG PCO2 41.5 mm Hg; ABG PH 7.41 pH Units (7.350-7.450); ABG PO2 81.4 mm Hg (80.0-90.0)
--- NOTE | 2019-12-05 14:05 | Vascular Lab Report ---
DUPLEX DOPPLER LOWER EXTREMITY VEINS, BILATERAL INDICATION: DVT. Gout, pulmonary mass TECHNIQUE: Duplex doppler imaging was performed through the veins of both lower extremities using ve nous compression and other maneuvers. COMPARISON: No relevant prior imaging study available. FINDINGS: Right Common femoral vein: Negative. Right Superficial femoral vein: Negative. Right Popliteal vein: Negative. Right Calf veins: Negative. Left Common femoral vein: Negative. Left Superficial femoral vein: Negative. Left Popliteal vein: Negative. Left Calf veins: Negative. Additional findings: There is an ovoid soft tissue masslike structure anterior to the left knee measu ring 2.0 x 4.3 x 2.4 cm. The etiology of this is unclear.. IMPRESSION: No sonographic evidence for DVT in either lower extremity. Soft tissue mass anterior the left knee o f uncertain etiology. If further evaluation is needed CT or MRI with contrast is recommended. Signer Name: Brian Saunders Jr, MD Signed: 12/05/2019 2:01 PM Workstation Name: [id number]
== END 2019-12-05 11:16 | disposition home or self-care (01) ==
LOC: VAS 11:15
PROVIDERS: ATTEND Internal Medicine
DX: I26.99 Other pulmonary embolism without acute cor pulmonale (principal); R91.1 Solitary pulmonary nodule; J30.89 Other allergic rhinitis
CPT/HCPCS: 36415; 80053; 80061; 82785; 82803; 84436; 84443; 86003; 93970

== ENCOUNTER 2019-12-16 09:53 | Outpatient (CLI) | payer OTHER ==
[2019-12-16 10:48] LABS: Blood Urea Nitrogen 10 mg/dL (9-20)
--- NOTE | 2019-12-16 12:33 | Cat Scan Report ---
CTA CHEST WITH CONTRAST INDICATION : SHORTNESS OF BREATH AND SUPRAHILAR MASS DIFFICULT TO SPEAK X 3 WK OMNIPAQUE 350 100ML. TECHNIQUE: Axial imaging performed through the chest, with contrast bolus timing set to maximize opa cification of the pulmonary arteries. Sagittal and coronal reformatted images. 3-plane MIP reformatte d images were obtained. All CT scans at this location are performed using CT dose reduction for ALAR A by means of automated exposure control. 100 mL of intravenous contrast administered. COMPARISON: Chest x-ray dated 12/02/2019 FINDINGS: Bolus: Contrast bolus timing is adequate. PTE: No filling defect is present to suggest PTE. Mediastinum: Heart size is normal. No pericardial effusion. The aorta is widely patent and normal ca liber. There are multiple enlarged and nearly coalescent lymph nodes at the left hilum which mildly compresses the left upper lobe vascular structures. An enlarged subcarinal lymph node measures up to 2.9 cm in short axis. The thyroid gland, tracheobronchial tree and esophagus are unremarkable. Lungs: Mild emphysematous changes are identified in the upper lung zones. An approximate 2.8 x 2.2 c m mass is identified in the anterior left upper lobe concerning for a primary lung neoplasm. The pricila rubin of the lungs are clear. No pleural effusion or pneumothorax. Bones: Lytic bony lesions are identified involving the left side of T12 and L1 vertebral bodies. Upper abdomen: Limited imaging of the upper abdomen shows nothing acute. IMPRESSION: No evidence for pulmonary embolus. 2.8 x 2.2 cm left upper lobe mass, coalescent left hilar adenopathy, subcarinal adenopathy and lytic bony lesions at T12 and L1 consistent with metastatic lung cancer. Signer Name: Brian Saunders Jr, MD Signed: 12/16/2019 12:28 PM Workstation Name: [id number]
== END 2019-12-16 09:54 | disposition home or self-care (01) ==
LOC: CT 09:53
PROVIDERS: ATTEND Internal Medicine
DX: J43.8 Other emphysema (principal); R91.8 Other nonspecific abnormal finding of lung field; R91.1 Solitary pulmonary nodule; J30.89 Other allergic rhinitis; I26.99 Other pulmonary embolism without acute cor pulmonale
CPT/HCPCS: 36415; 71275; 82565; 84520; Q9967

== ENCOUNTER 2020-04-05 04:04 | Emergency (ER) | payer OTHER ==
[2020-04-05] MEDS ORDERED: LORazepam 2 MG/ML VIAL ONE (04:10)
[2020-04-05] MEDS ORDERED: ETOMIDATE 20 MG/10 ML INJ IV ONE ×2 (04:10→04:27)
[2020-04-05] MEDS ORDERED: SUCCINYLCHOLINE CHLORIDE 200 MG/10 ML INJ MDV ONE (04:10)
[2020-04-05] MEDS ORDERED: levETIRAcetam 1000 MG/NS 0.75% 1,000 MG/100 ML BAG IV ONE ×2 (04:10→04:25)
[2020-04-05] MEDS ORDERED: SODIUM CHLORIDE 0.9% 1000 ML 1,000 ML IV ONE (04:17)
[2020-04-05] MEDS ORDERED: MINERAL OIL/PETROLATUM, WHITE OPHTH OINT 3.5 GM OU PRN (04:18)
[2020-04-05] MEDS ORDERED: LIP THERAPY VASELINE TP PRN (04:18)
--- NOTE | 2020-04-05 04:24 | Emergency Department Report ---
HPI - General Chief Complaint: Seizure Time Seen by Provider: 04/05/20 04:17 - HPI HPI: This is a 54-year-old -[place] male presents to the emergency department via EMS from home after the patient had witnessed seizure-like activity. EMS says the patient had 3-4 further witnessed seizures in their presence leading up to arrival at our emergency department. The patient received 2 mg of Ativan intranasally and 2 mg of Ativan IV at different times. The patient apparently does not have any history of any seizure disorder. In reviewing the patient's records, it appears that the patient has a recent diagnosis of lung cancer and also had a recent PET scan showing bony and rafat metastasis. The patient recently had a history of a 1 pack/day tobacco use and also has a history of gout. The patient is a poor historian secondary to his current medical condition. Upon arrival to the emergency department, the patient has a GCS of 3, no gag reflex, and shallow respirations, and for these reasons the patient was intubated. ED Past Medical Hx - Past Medical History Previous Medical History?: Yes Hx Hypertension: Yes Hx Deep Vein Thrombosis: Yes Hx Pulmonary Embolism: Yes Hx of Cancer: Yes Hx COPD: Yes Additional medical history: Gout - Social History Smoking Status: Unknown if ever smoked - Medications Home Medications: Home Medications Medication Instructions Recorded Confirmed Last Taken Type Indomethacin [Indocin] 25 mg PO DAILY PRN #30 capsule 02/26/13 12/23/19 10/02/13 09:00 Rx Probenecid/Colchicine 1 each PO DAILY #7 tablet 02/26/13 12/23/19 10/02/13 09:00 Rx [Probenecid-Colchicine Tab] allopurinoL [Zyloprim] 100 mg PO QDAY #30 tablet 02/26/13 12/23/19 10/02/13 09:00 Rx HYDROcodone/APAP 5-325 [[place]cker 1 each PO Q6HR PRN #12 tablet 12/24/16 Unknown Rx 5-325 mg TAB] Ibuprofen [Motrin] 600 mg PO Q8H PRN #15 tablet 12/24/16 12/23/19 Unknown Rx predniSONE [Deltasone] 50 mg PO QDAY #5 tab 12/24/16 12/23/19 Unknown Rx traMADoL [Ultram] 50 mg PO Q6HR PRN #20 tablet 01/12/17 12/23/19 Unknown Rx Colchicine [Colcrys] 0.6 mg PO DAILY #4 tablet 09/11/17 12/23/19 Unknown Rx HYDROcodone/APAP 5-325 [Crocker 1 each PO Q6HR PRN #15 tablet 09/11/17 12/23/19 12/22/19 Rx 5/325] 1 ED Review of Systems ROS: Stated complaint: SEIZURE Other details as noted in HPI Comment: Unobtainable due to pts medical conditions Physical Exam - Physical Exam Vital Signs: Vital Signs 04/05/20 04:15 Pulse Rate 125 H Respiratory 17 Rate Blood Pressure 137/91 O2 Sat by Pulse 95 Oximetry Physical Exam: GENERAL: Patient is ill-appearing and unresponsive. HENT: Normocephalic. Atraumatic. Patient has moist mucous membranes. EYES: Pupils equal reactive to light bilaterally. NECK: Supple. Trachea is midline. CHEST/LUNGS: Decreased breath sounds on the left. Coarse breath sounds. Shallow respirations with bradypnea. There is respiratory distress noted. HEART/CARDIOVASCULAR: Regular. There is moderate tachycardia. There is no murmur. ABDOMEN: Abdomen is soft, nontender. Patient has normal bowel sounds. There is no abdominal distention. SKIN: Skin is warm and dry. NEURO: Patient is unresponsive to verbal or painful stimuli. No gag reflex. Nonverbal. MUSCULOSKELETAL: There is no obvious deformity. ED Course Vital Signs 04/05/20 04:15 Pulse Rate 125 H Respiratory 17 Rate Blood Pressure 137/91 O2 Sat by Pulse 95 Oximetry - Reevaluation(s) Reevaluation #1: 04/05/20 20:04 Lab Results 04/05/20 04/05/20 04/05/20 Range/Units 04:55 04:55 04:55 WBC 9.4 (4.5-11.0) K/mm3 RBC 3.87 (3.65-5.03) M/mm3 Hgb 13.0 (11.8-15.2) gm/dl Hct 39.8 (35.5-45.6) % MCV 103 H (84-94) fl MCH 34 H (28-32) pg MCHC 33 (32-34) % RDW 23.4 H (13.2-15.2) % Plt Count 89 L (140-440) K/mm3 Lymph % (Auto) 7.3 L (13.4-35.0) % [place] % (Auto) 3.6 (0.0-7.3) % Eos % (Auto) 0.0 (0.0-4.3) % Baso % (Auto) 0.2 (0.0-1.8) % Lymph # (Auto) 0.7 L (1.2-5.4) K/mm3 [place] # (Auto) 0.3 (0.0-0.8) K/mm3 Eos # (Auto) 0.0 (0.0-0.4) K/mm3 Baso # (Auto) 0.0 (0.0-0.1) K/mm3 Seg Neutrophils % 88.9 H (40.0-70.0) % Seg Neutrophils # 8.4 H (1.8-7.7) K/mm3 PT 14.9 (12.2-14.9) Sec. INR 1.15 H (0.87-1.13) APTT 28.2 (24.2-36.6) Sec. ABG pH (7.350-7.450) pH Units ABG pCO2 mm Hg ABG pO2 (80.0-90.0) mm Hg ABG HCO3 (20.0-26.0) mmol/L ABG O2 Saturation (95.0-99.0) % ABG O2 Content (0.0-44) ABG Base Excess (-2.0-3.0) mmol/L ABG Hemoglobin (14.0-18.0) gm/dl ABG Carboxyhemoglobin (0.0-5.0) % ABG Methemoglobin (0.0-1.5) % Oxyhemoglobin (95.0-99.0) % FiO2 % Sodium (137-145) mmol/L Potassium (3.6-5.0) mmol/L Chloride (98-107) mmol/L Carbon Dioxide (22-30) mmol/L Anion Gap mmol/L BUN (9-20) mg/dL Creatinine (0.8-1.3) mg/dL Estimated GFR ml/min BUN/Creatinine Ratio % Glucose (75-100) mg/dL Lactic Acid 9.80 H* (0.7-2.0) mmol/L Calcium (8.4-10.2) mg/dL Total Bilirubin (0.1-1.2) mg/dL AST (5-40) units/L ALT (7-56) units/L Alkaline Phosphatase (35-129) units/L Ammonia (25-60) umol/L Troponin T (0.00-0.029) ng/mL Total Protein (6.3-8.2) g/dL Albumin (3.9-5) g/dL Albumin/Globulin Ratio % TSH (0.270-4.200) mlU/mL Plasma/Serum Alcohol (0-0.07) % Blood Type Antibody Screen 04/05/20 04/05/20 04/05/20 Range/Units 04:55 04:55 04:55 WBC (4.5-11.0) K/mm3 RBC (3.65-5.03) M/mm3 Hgb (11.8-15.2) gm/dl Hct (35.5-45.6) % MCV (84-94) fl MCH (28-32) pg MCHC (32-34) % RDW (13.2-15.2) % Plt Count (140-440) K/mm3 Lymph % (Auto) (13.4-35.0) % [place] % (Auto) (0.0-7.3) % Eos % (Auto) (0.0-4.3) % Baso % (Auto) (0.0-1.8) % Lymph # (Auto) (1.2-5.4) K/mm3 [place] # (Auto) (0.0-0.8) K/mm3 Eos # (Auto) (0.0-0.4) K/mm3 Baso # (Auto) (0.0-0.1) K/mm3 Seg Neutrophils % (40.0-70.0) % Seg Neutrophils # (1.8-7.7) K/mm3 PT (12.2-14.9) Sec. INR (0.87-1.13) APTT (24.2-36.6) Sec. ABG pH (7.350-7.450) pH Units ABG pCO2 mm Hg ABG pO2 (80.0-90.0) mm Hg ABG HCO3 (20.0-26.0) mmol/L ABG O2 Saturation (95.0-99.0) % ABG O2 Content (0.0-44) ABG Base Excess (-2.0-3.0) mmol/L ABG Hemoglobin (14.0-18.0) gm/dl ABG Carboxyhemoglobin (0.0-5.0) % ABG Methemoglobin (0.0-1.5) % Oxyhemoglobin (95.0-99.0) % FiO2 % Sodium 139 (137-145) mmol/L Potassium 4.7 (3.6-5.0) mmol/L Chloride 100.6 (98-107) mmol/L Carbon Dioxide 14 L (22-30) mmol/L Anion Gap 29 mmol/L BUN 8 L (9-20) mg/dL Creatinine 0.9 (0.8-1.3) mg/dL Estimated GFR > 60 ml/min BUN/Creatinine Ratio 9 % Glucose 161 H (75-100) mg/dL Lactic Acid (0.7-2.0) mmol/L Calcium 8.4 (8.4-10.2) mg/dL Total Bilirubin 0.30 (0.1-1.2) mg/dL AST 36 (5-40) units/L ALT 11 (7-56) units/L Alkaline Phosphatase 232 H (35-129) units/L Ammonia 120.0 H (25-60) umol/L Troponin T < 0.010 (0.00-0.029) ng/mL Total Protein 7.2 (6.3-8.2) g/dL Albumin 3.8 L (3.9-5) g/dL Albumin/Globulin Ratio 1.1 % TSH 1.520 (0.270-4.200) mlU/mL Plasma/Serum Alcohol (0-0.07) % Blood Type Antibody Screen 04/05/20 04/05/20 04/05/20 Range/Units 04:55 04:55 05:40 WBC (4.5-11.0) K/mm3 RBC (3.65-5.03) M/mm3 Hgb (11.8-15.2) gm/dl Hct (35.5-45.6) % MCV (84-94) fl MCH (28-32) pg MCHC (32-34) % RDW (13.2-15.2) % Plt Count (140-440) K/mm3 Lymph % (Auto) (13.4-35.0) % [place] % (Auto) (0.0-7.3) % Eos % (Auto) (0.0-4.3) % Baso % (Auto) (0.0-1.8) % Lymph # (Auto) (1.2-5.4) K/mm3 [place] # (Auto) (0.0-0.8) K/mm3 Eos # (Auto) (0.0-0.4) K/mm3 Baso # (Auto) (0.0-0.1) K/mm3 Seg Neutrophils % (40.0-70.0) % Seg Neutrophils # (1.8-7.7) K/mm3 PT (12.2-14.9) Sec. INR (0.87-1.13) APTT (24.2-36.6) Sec. ABG pH 7.310 L (7.350-7.450) pH Units ABG pCO2 34.1 mm Hg ABG pO2 71.3 L (80.0-90.0) mm Hg ABG HCO3 16.8 L (20.0-26.0) mmol/L ABG O2 Saturation 92.7 L (95.0-99.0) % ABG O2 Content 15.9 (0.0-44) ABG Base Excess -8.5 L (-2.0-3.0) mmol/L ABG Hemoglobin 12.5 L (14.0-18.0) gm/dl ABG Carboxyhemoglobin 2.0 (0.0-5.0) % ABG Methemoglobin 0.7 (0.0-1.5) % Oxyhemoglobin 90.3 L (95.0-99.0) % FiO2 100 % Sodium (137-145) mmol/L Potassium (3.6-5.0) mmol/L Chloride (98-107) mmol/L Carbon Dioxide (22-30) mmol/L Anion Gap mmol/L BUN (9-20) mg/dL Creatinine (0.8-1.3) mg/dL Estimated GFR ml/min BUN/Creatinine Ratio % Glucose (75-100) mg/dL Lactic Acid (0.7-2.0) mmol/L Calcium (8.4-10.2) mg/dL Total Bilirubin (0.1-1.2) mg/dL AST (5-40) units/L ALT (7-56) units/L Alkaline Phosphatase (35-129) units/L Ammonia (25-60) umol/L Troponin T (0.00-0.029) ng/mL Total Protein (6.3-8.2) g/dL Albumin (3.9-5) g/dL Albumin/Globulin Ratio % TSH (0.270-4.200) mlU/mL Plasma/Serum Alcohol < 0.01 (0-0.07) % Blood Type B POSITIVE Antibody Screen Negative 04/05/20 Range/Units 06:51 WBC (4.5-11.0) K/mm3 RBC (3.65-5.03) M/mm3 Hgb (11.8-15.2) gm/dl Hct (35.5-45.6) % MCV (84-94) fl MCH (28-32) pg MCHC (32-34) % RDW (13.2-15.2) % Plt Count (140-440) K/mm3 Lymph % (Auto) (13.4-35.0) % [place] % (Auto) (0.0-7.3) % Eos % (Auto) (0.0-4.3) % Baso % (Auto) (0.0-1.8) % Lymph # (Auto) (1.2-5.4) K/mm3 [place] # (Auto) (0.0-0.8) K/mm3 Eos # (Auto) (0.0-0.4) K/mm3 Baso # (Auto) (0.0-0.1) K/mm3 Seg Neutrophils % (40.0-70.0) % Seg Neutrophils # (1.8-7.7) K/mm3 PT (12.2-14.9) Sec. INR (0.87-1.13) APTT (24.2-36.6) Sec. ABG pH (7.350-7.450) pH Units ABG pCO2 mm Hg ABG pO2 (80.0-90.0) mm Hg ABG HCO3 (20.0-26.0) mmol/L ABG O2 Saturation (95.0-99.0) % ABG O2 Content (0.0-44) ABG Base Excess (-2.0-3.0) mmol/L ABG Hemoglobin (14.0-18.0) gm/dl ABG Carboxyhemoglobin (0.0-5.0) % ABG Methemoglobin (0.0-1.5) % Oxyhemoglobin (95.0-99.0) % FiO2 % Sodium (137-145) mmol/L Potassium (3.6-5.0) mmol/L Chloride (98-107) mmol/L Carbon Dioxide (22-30) mmol/L Anion Gap mmol/L BUN (9-20) mg/dL Creatinine (0.8-1.3) mg/dL Estimated GFR ml/min BUN/Creatinine Ratio % Glucose (75-100) mg/dL Lactic Acid 5.00 H* (0.7-2.0) mmol/L Calcium (8.4-10.2) mg/dL Total Bilirubin (0.1-1.2) mg/dL AST (5-40) units/L ALT (7-56) units/L Alkaline Phosphatase (35-129) units/L Ammonia (25-60) umol/L Troponin T (0.00-0.029) ng/mL Total Protein (6.3-8.2) g/dL Albumin (3.9-5) g/dL Albumin/Globulin Ratio % TSH (0.270-4.200) mlU/mL Plasma/Serum Alcohol (0-0.07) % Blood Type Antibody Screen - Consultations Consultation #1: 04/05/20 05:27 I spoke with the critical care pipe or steam fitter furnace installer at [facility], Dr. Ochoa. The patient has been accepted for transfer to [facility] on [facility]. Dr. Gagnon is asked for the patient to receive an additional 2 g of Keppra and for the patient to get 4 mg of Decadron. The patient has been accepted but we are waiting for a bed assignment. - ABG Interpretation Ph: 7.31 PCO2: 34 PO2: 71 Bicarbonate: 16 Interpretation: respiratory alkalosis, metabolic acidosis - Intubation Time Out Performed: Yes Sedative: Etomidate Mg Given: 20 Paralytic: Succinylcholine Mg Given: 60 Laryngoscope: other ([place] scope) Size: 4 ET Tube Size: 7.5 Tube Secured Depth (cm): 24 Tube Secured Location: lips Tube Placement Confirmation: visualized tube passing t, equal breath sounds bilat, confirmation by capnometr Patient Tolerated Procedure: well Intubation Complications: none ED Medical Decision Making - Lab Data Result diagrams: 04/05/20 04:55 04/05/20 04:55 - EKG Data -: EKG Interpreted by Me EKG shows normal: sinus rhythm (PACs), axis, intervals, QRS complexes (Q waves to the septal leads), ST-T waves Rate: tachycardia (129 bpm) - EKG Data When compared to previous EKG there are: previous EKG unavailable Interpretation: other (Sinus tachycardia at 129 bpm, PACs, Q waves to the septal leads) - Radiology Data Radiology results: report reviewed CT HEAD WITHOUT CONTRAST INDICATION: Altered mental status, history of lung cancer TECHNIQUE: Axial slices were obtained through the head. Coronal and sagittal reformatted images were obtained. COMPARISON: None available. FINDINGS: There is no intracranial hemorrhage or extra-axial fluid collection. Ventricles, basilar cisterns, and sulci appear within normal limits for age. There is edema with the apparent 1.4 cm mass in the left temporal occipital region. This is suspicious for metastatic lesion. No acute territorial infarct is identified. Bone windows demonstrate there is a lytic lesion in the left occipital bone.. Paranasal sinuses and mastoid air cells appear clear. TECHNIQUE: All CT scans at this facility use dose modulation, iterative reconstruction, automated exposure control, weight based dosing, when appropriate, to reduce radiation dose to as low as reasonably achievable. IMPRESSION: 1. There is a 1.4 cm lesion with surrounding edema in the left temporal occipital region suspicious for metastasis. There is a lytic lesion in the left occipital bone also suspicious for metastasis. There is no intracranial hemorrhage. There is no significant mass effect MRI is recommended for further evaluation.. CHEST 1 VIEW INDICATION / CLINICAL INFORMATION: ETT placement. COMPARISON: 12/23/2019 FINDINGS: SUPPORT DEVICES: Tip of the central venous catheter projects the level the superior vena cava. The tip of endotracheal tube is approximately 3 cm above the hi. HEART / MEDIASTINUM: There is increased soft tissue density in the right paratracheal location likely representing adenopathy LUNGS / PLEURA: There is opacification of the upper half of the left chest consistent with significant enlargement of the previously noted left lung mass. No pneumot horax. There is a small left pleural effusion. ADDITIONAL FINDINGS: No significant additional findings. IMPRESSION: 1. Left lung mass is significantly increased in size in the interval. 2. Endotracheal tube and central venous line appear in satisfactory position radiographically. 3. There is a small left pleural effusion. - Medical Decision Making This patient presents to the emergency department after he had a seizure at home, multiple seizures in route, and then another seizure upon arrival. The patient presented with a GCS of 3, unresponsive to verbal or painful stimuli and without a gag reflex. He had shallow respirations with bradypnea. For all these reasons the patient was intubated secondary to respiratory failure and protection of airway. The patient received some IV fluid resuscitation, 1 g of Keppra, and 2 more milligrams of Ativan. The patient was placed on an Ativan drip after intubation. The patient went straight for a CT scan of the head without contrast that came back showing a 1.4 cm left temporal occipital lesion with some surrounding edema, as well as a lytic lesion to the occiput. The patient's heart rate went up slightly after return from CT imaging and he appeared to have some further seizure-like activity. We do not have a neurosurgery service available. We do not have neurology over the weekend, and I believe the patient requires a more dedicated neurology service as he may also need a continuous EEG. For these reasons the patient will be transferred to [facility] [place] [facility] and has been accepted by Dr. Ochoa, critical care pipe or steam fitter furnace installer. Critical Care Time: Yes Critical care time in (mins) excluding proc time.: 45 Critical care attestation.: If time is entered above; I have spent that time in minutes in the direct care of this critically ill patient, excluding procedure time. Critical care time w as spent on this patient in doing his initial evaluation, multiple reevaluations, ordering and interpretation of labs and imaging, discussion with the [facility] critical care pipe or steam fitter furnace installer, discussion with the patient significant other, IV antiepileptic medication, IV fluid resuscitation. Critical Care Time: 45 minutes ED Disposition Clinical Impression: New onset seizure, Metastatic cancer to brain Lung cancer Qualifiers: Laterality: left Lung location: unspecified part of lung Qualified Code(s): C34.92 - Malignant neoplasm of unspecified part of left bronchus or lung Acute respiratory failure Qualifiers: Respiratory failure complication: unspecified whether with hypoxia or hypercapnia Qualified Code(s): J96.00 - Acute respiratory failure, unspecified whether with hypoxia or hypercapnia Disposition: DC/TX-70 ANOTHER TYPE HLTHCARE Is pt being admited?: No Condition: Serious Referrals: MOISÉS CORREA MD [Primary Care Provider] - 3-5 Days
[2020-04-05] MEDS ORDERED: LORazepam 2 MG/ML VIAL IV ONE (04:26)
[2020-04-05] MEDS ORDERED: SUCCINYLCHOLINE CHLORIDE 200 MG/10 ML INJ MDV IV ONE (04:26)
--- NOTE | 2020-04-05 04:55 | Cat Scan Report ---
CT HEAD WITHOUT CONTRAST INDICATION: Altered mental status, history of lung cancer TECHNIQUE: Axial slices were obtained through the head. Coronal and sagittal reformatted images were obtained. COMPARISON: None available. FINDINGS: There is no intracranial hemorrhage or extra-axial fluid collection. Ventricles, basilar cisterns, an d sulci appear within normal limits for age. There is edema with the apparent 1.4 cm mass in the left temporal occipital region. This is suspicious for metastatic lesion. No acute territorial infarct is identified. Bone windows demonstrate there is a lytic lesion in the left occipital bone.. Paranasal sinuses and m astoid air cells appear clear. TECHNIQUE: All CT scans at this facility use dose modulation, iterative reconstruction, automated ex posure control, weight based dosing, when appropriate, to reduce radiation dose to as low as reasonab ly achievable. IMPRESSION: 1. There is a 1.4 cm lesion with surrounding edema in the left temporal occipital region suspicious f or metastasis. There is a lytic lesion in the left occipital bone also suspicious for metastasis. The re is no intracranial hemorrhage. There is no significant mass effect MRI is recommended for further evaluation.. Signer Name: Marino Crystal MD Signed: 04/05/2020 4:50 AM Workstation Name: [id number]
--- NOTE | 2020-04-05 04:59 | XRay Report ---
CHEST 1 VIEW INDICATION / CLINICAL INFORMATION: ETT placement. COMPARISON: 12/23/2019 FINDINGS: SUPPORT DEVICES: Tip of the central venous catheter projects the level the superior vena cava. The ti p of endotracheal tube is approximately 3 cm above the hi. HEART / MEDIASTINUM: There is increased soft tissue density in the right paratracheal location likely representing adenopathy LUNGS / PLEURA: There is opacification of the upper half of the left chest consistent with significan t enlargement of the previously noted left lung mass. No pneumothorax. There is a small left pleural effusion. ADDITIONAL FINDINGS: No significant additional findings. IMPRESSION: 1. Left lung mass is significantly increased in size in the interval. 2. Endotracheal tube and central venous line appear in satisfactory position radiographically. 3. There is a small left pleural effusion. Signer Name: Marino Crystal MD Signed: 04/05/2020 4:55 AM Workstation Name: [id number]
[2020-04-05] MEDS ORDERED: LORazepam 100 MG in SODIUM CHLORIDE 0.9% 50 ML, EMPTY BAG 0 ML IV SCH (05:00)
[2020-04-05] MEDS ORDERED: dexAMETHasone 4 MG/ML VIAL IV ONE (05:24)
[2020-04-05] MEDS ORDERED: levETIRAcetam 2,000 MG in DEXTROSE 5% IN WATER 100 ML IV ONE (05:24)
[2020-04-05 05:35] LABS: Basophils % (Auto) 0.2 % (0.0-1.8); Hematocrit 39.8 % (35.5-45.6); Lymphocytes # (Auto) 0.7 K/mm3 (1.2-5.4); Lymphocytes % (Auto) 7.3 % (13.4-35.0); Mean Corpuscular HGB Conc 33 % (32-34); Mean Corpuscular Volume 103 fl (84-94); Monocytes # (Auto) 0.3 K/mm3 (0.0-0.8); Monocytes % (Auto) 3.6 % (0.0-7.3); Red Blood Count 3.87 M/mm3 (3.65-5.03)
[2020-04-05 05:46] LABS: Platelet Count 89 K/mm3 (140-440); Red Cell Distribution Width 23.4 % (13.2-15.2)
[2020-04-05 05:48] LABS: INR 1.15 (0.87-1.13)
[2020-04-05 05:49] LABS: Partial Thromboplastin Time 28.2 Sec. (24.2-36.6)
[2020-04-05 06:00] LABS: ABG Base Excess -8.5 mmol/L (-2.0-3.0); ABG HCO3 16.8 mmol/L (20.0-26.0); ABG Methemoglobin 0.7 % (0.0-1.5); ABG Oxygen Saturation 92.7 % (95.0-99.0); ABG PCO2 34.1 mm Hg; ABG PH 7.31 pH Units (7.350-7.450); ABG PO2 71.3 mm Hg (80.0-90.0)
[2020-04-05 06:01] LABS: Alanine Aminotransferase 11 units/L (7-56); Albumin 3.8 g/dL (3.9-5); BUN/Creatinine Ratio 9; Blood Urea Nitrogen 8 mg/dL (9-20); Calcium 8.4 mg/dL (8.4-10.2); Hemolysis Index 22
[2020-04-05 07:35] VITALS: BP 98/61
== END 2020-04-05 07:55 | disposition other institution (70) ==
LOC: ED 04:04
DX: J96.00 Acute respiratory failure, unspecified whether with hypoxia or hypercapnia (principal); C34.90 Malignant neoplasm of unspecified part of unspecified bronchus or lung; C79.31 Secondary malignant neoplasm of brain; R56.9 Unspecified convulsions; I10 Essential (primary) hypertension; J44.9 Chronic obstructive pulmonary disease, unspecified; Z86.718 Personal history of other venous thrombosis and embolism; Z86.711 Personal history of pulmonary embolism; Z79.1 Long term (current) use of non-steroidal anti-inflammatories (NSAID); Z79.899 Other long term (current) drug therapy
CPT/HCPCS: 31500; 36415; 70450; 71045; 80053; 82140; 82803; 84443; 84484; 85025; 85610; 85730; 86850; 86900; 86901; 87070; 87186; 87205; 93005; 96365; 96366; 96368; 96375; 99291; J0330; J1100; J1953; J2060; J2704; J7030; 80320; 94002; G0480

== ENCOUNTER 2020-05-13 19:15 | Emergency (ER) | payer OTHER ==
--- NOTE | 2020-05-13 19:26 | Emergency Department Report ---
ED CPR HPI - General Chief Complaint: Cardiac Arrest/CPR Stated Complaint: CARDIAC ARREST Time Seen by Provider: 05/13/20 19:21 Source: EMS (Verbal report received from emergency medical services. EMS documentation not available at time of chart dictation ), RN notes reviewed, old records reviewed Mode of arrival: Stretcher Limitations: Altered Mental Status, Physical Limitation - History of Present Illness Initial Comments: The patient was evaluated in the emergency department for symptoms described in the history of present illness. He/she was evaluated in the context of the global COVID-19 pandemic, which necessitated consideration that the patient might be at risk for infection with the virus that causes COVID-19. Institutional protocols and algorithms that pertain to the evaluation of patients at risk for COVID-19 are in a state of rapid change based on information released by regulatory bodies including the CDC and federal and state organizations. These policies and algorithms were followed during the patient's care in the emergency department. Please note that these policies, procedures and recommendations changed on a rapid basis. Patient is a 54-year-old gentleman. He presents to the emergency room via EMS, with an EMS articulated complaint of out of hospital of nontraumatic cardiac arrest. Patient found at home by family, not breathing. EMS was activated, family did not start CPR, as per collateral information from EMS. EMS states that upon their arrival, patient apneic, not breathing, and asystole, without shockable rhythm. EMS places Wilman airway, initiated high-quality CPR, give his 4 rounds of epinephrine, dextrose, and places lower extremity IO line. EMS states patient is persistently pulseless, without a shockable rhythm, for approximately 20 to 25 minutes. Upon arrival to this emergency room, patient is pulseless, in asystole. His pupils are dilated, and do not react to light. High-quality CPR was continued. Pulses are not obtained. Patient does not have a shockable rhythm. He continues to remain in asystole. Resuscitation efforts were terminated secondary to medical futility. Chart is reviewed, apparently, patient appears to have a history of end-stage lung cancer with multiple mets, question DVT versus pulmonary embolism, COPD, and home oxygen dependent. MD Complaint: found unresponsive Bystander CPR Performed: No Initial Findings in the Field: unresponsive, no pulse ROSC in the Field: No Associated Injuries: No Treatments Prior to Arrival: other airway device, chest compressions, epinephrine mgs # (4), glucose - Related Data Home Medications Medication Instructions Recorded Confirmed Last Taken Acetaminophen with Codeine 1 tab PO Q6HR 04/28/20 04/28/20 Unknown [Acetaminophen-Codeine #4 TAB] Famotidine [Pepcid] 20 mg PO BID 04/28/20 04/28/20 Unknown Fluticasone/Vilanterol [Breo 1 each IH QDAY 04/28/20 04/28/20 Unknown Ellipta 100-25 Mcg INH] HYDROcodone/ACETAMINOPHEN 1 each PO Q8HR PRN 04/28/20 04/28/20 Unknown [Hydrocodone-Acetamin 5-300 mg] Megestrol Acetate 400 mg PO QDAY 04/28/20 04/28/20 Unknown Morphine Sulfate [Morphine Sulfate 15 mg PO Q12HR 04/28/20 04/28/20 Unknown ER] Pentazocine HCl/Naloxone HCl 1 each PO Q6HR PRN 04/28/20 04/28/20 Unknown [Pentazocine-Naloxone Tablet] Tiotropium [place] [Spiriva 4 gm IH BID 04/28/20 04/28/20 Unknown Respimat] buPROPion HCL [Bupropion HCl Sr] 150 mg PO BID 04/28/20 04/28/20 Unknown diphenhydrAMINE/ZINC 2% [Banophen 28.4 gm TP QDAY 04/28/20 04/28/20 Unknown Anti-Itch] Previous Rx's Medication Instructions Recorded Last Taken Type Apixaban [Eliquis] 2.5 mg PO BID #60 tablet 05/10/20 Unknown Rx Magnesium Citrate 125 mg PO DAILY #14 capsule 05/10/20 Unknown Rx Potassium Chloride [K-Dur] 20 meq PO BID 14 Days tab 05/10/20 Unknown Rx Allergies Allergy/AdvReac Type Severity Reaction Status Date / Time No Known Allergies Allergy Verified 12/24/16 11:28 ED Review of Systems ROS: Stated complaint: CARDIAC ARREST Other details as noted in HPI Comment: Unobtainable due to pts medical conditions ED Past Medical Hx - Past Medical History Hx Hypertension: Yes Hx Deep Vein Thrombosis: Yes Hx Pulmonary Embolism: Yes Hx GERD: Yes Hx COPD: Yes Additional medical history: Gout - Social History Smoking Status: Current Every Day Smoker - Medications Home Medications: Home Medications Medication Instructions Recorded Confirmed Last Taken Type Acetaminophen with Codeine 1 tab PO Q6HR 04/28/20 04/28/20 Unknown History [Acetaminophen-Codeine #4 TAB] Famotidine [Pepcid] 20 mg PO BID 04/28/20 04/28/20 Unknown History Fluticasone/Vilanterol [Breo 1 each IH QDAY 04/28/20 04/28/20 Unknown History Ellipta 100-25 Mcg INH] HYDROcodone/ACETAMINOPHEN 1 each PO Q8HR PRN 04/28/20 04/28/20 Unknown History [Hydrocodone-Acetamin 5-300 mg] Megestrol Acetate 400 mg PO QDAY 04/28/20 04/28/20 Unknown History Morphine Sulfate [Morphine Sulfate 15 mg PO Q12HR 04/28/20 04/28/20 Unknown History ER] Pentazocine HCl/Naloxone HCl 1 each PO Q6HR PRN 04/28/20 04/28/20 Unknown History [Pentazocine-Naloxone Tablet] Tiotropium [place] [Spiriva 4 gm IH BID 04/28/20 04/28/20 Unknown History Respimat] buPROPion HCL [Bupropion HCl Sr] 150 mg PO BID 04/28/20 04/28/20 Unknown History diphenhydrAMINE/ZINC 2% [Banophen 28.4 gm TP QDAY 04/28/20 04/28/20 Unknown History Anti-Itch] Apixaban [Eliquis] 2.5 mg PO BID #60 tablet 05/10/20 Unknown Rx Magnesium Citrate 125 mg PO DAILY #14 capsule 05/10/20 Unknown Rx Potassium Chloride [K-Dur] 20 meq PO BID 14 Days tab 05/10/20 Unknown Rx ED Physical Exam - General Limitations: Altered Mental Status, Physical Limitation General appearance: obtunded - Head Head exam: Present: atraumatic, normocephalic - Eye Eye exam: Present: normal appearance, other (Pupils dilated, do not react to light) - ENT ENT exam: Present: mucous membranes moist, other (Wilman airway noted in the oropharynx) - Neck Neck exam: Present: normal inspection - Respiratory Respiratory exam: Absent: normal lung sounds bilaterally (Patient is not breathing spontaneously) - Cardiovascular Cardiovascular Exam: Absent: regular rate, normal rhythm, normal heart sounds (The patient is pulseless), systolic murmur, diastolic murmur, rubs, gallop - GI/Abdominal GI/Abdominal exam: Present: soft - Rectal Rectal exam: Present: deferred - Extremities Exam Extremities exam: Present: normal inspection, other (Lower extremity IO line is noted) - Back Exam Back exam: Present: normal inspection - Neurological Exam Neurological exam: Present: other (Intubated, GCS of 3T) - Psychiatric Psychiatric exam: Present: other (Patient is nonverbal) - Skin Skin exam: Present: warm, dry, intact, normal color. Absent: rash ED Medical Decision Making - Medical Decision Making Differential diagnosis, including but not limited to: Intracranial hemorrhage, pulmonary embolism, electrolyte derangement, hypoxemic respiratory failure, hypercarbic respiratory failure Critical care attestation.: If time is entered above; I have spent that time in minutes in the direct care of this critically ill patient, excluding procedure time. ED Disposition Clinical Impression: Cardiac arrest Disposition: DC-20 Is pt being admited?: No Does the pt Need Aspirin: No Condition: Undetermined Referrals: PRIMARY CARE, [Primary Care Provider] - 3-5 Days
== END 2020-05-14 01:32 ==
LOC: ED 19:15
DX: I46.9 Cardiac arrest, cause unspecified (principal); I10 Essential (primary) hypertension; K21.9 Gastro-esophageal reflux disease without esophagitis; J44.9 Chronic obstructive pulmonary disease, unspecified; F17.200 Nicotine dependence, unspecified, uncomplicated
CPT/HCPCS: 92950